=== PATIENT | female | born 1975 | race American Indian/Alaskan Native ===

== ENCOUNTER 2019-01-23 13:50 | Inpatient (IN) | payer OTHER ==
--- NOTE | 2019-01-23 14:07 | Emergency Department Report ---
Blank Doc - Documentation Documentation: This is a 43-year-old female that presents with n/v and abdominal pain diffuse. This initial assessment/diagnostic orders/clinical plan/treatment(s) is/are subject to change based on patient's health status, clinical progression and re- assessment by fellow clinical providers in the ED. Further treatment and workup at subsequent clinical providers discretion. Patient/guardians urged not to elope from the ED as their condition may be serious if not clinically assessed and managed. Initial orders include: 1- Patient sent to [facility] for further evaluation and treatment 2- labs 3- UA
[2019-01-23 14:44] LABS: Bilirubin,Urine NEG (Negative); Blood,Urine NEG (Negative); Color,Urine Yellow (Yellow); Mucus,Urine FEW /HPF; RBC,Urine < 1.0 /HPF (0.0-6.0); Urobilinogen,Urine < 2.0 mg/dL (<2.0)
[2019-01-23 15:15] LABS: Basophils # (Auto) 0.1 K/mm3 (0.0-0.1); Basophils % (Auto) 0.5 % (0.0-1.8); Eosinophils % (Auto) 0.1 % (0.0-4.3); Hematocrit 36.3 % (30.3-42.9); Hemoglobin 11.6 gm/dl (10.1-14.3); Lymphocytes # (Auto) 1.5 K/mm3 (1.2-5.4); Lymphocytes % (Auto) 10.3 % (13.4-35.0); Mean Corpuscular HGB Conc 32 % (30-34); Mean Corpuscular Volume 73 fl (79-97); Monocytes # (Auto) 0.7 K/mm3 (0.0-0.8); Monocytes % (Auto) 4.9 % (0.0-7.3); Platelet Count 330 K/mm3 (140-440); Red Blood Count 4.95 M/mm3 (3.65-5.03)
[2019-01-23 15:33] LABS: Alanine Aminotransferase 15 units/L (7-56); Albumin 3.8 g/dL (3.9-5); BUN/Creatinine Ratio 20; Blood Urea Nitrogen 10 mg/dL (7-17); Calcium 8.5 mg/dL (8.4-10.2); Hemolysis Index 23
[2019-01-23 15:38] LABS: Bilirubin,Direct < 0.2 mg/dL (0-0.2)
--- NOTE | 2019-01-23 19:44 | Emergency Department Report ---
ED Abdominal Pain HPI - General Chief Complaint: Abdominal Pain Stated Complaint: STOMACH PAIN EXTREME Time Seen by Provider: 01/23/19 14:06 Source: patient Mode of arrival: Ambulatory Limitations: No Limitations - History of Present Illness Initial Comments: Pt is a 43 yo female who presents to the ED with c/o generalized upper abd pain that began yesterday. She has associated N/V. The patient states she also has constipation, she says she had a small BM yesterday. She denies any diarrhea or fever. The patient denies any urinary sx. LNMP December 24. She denies any PMHx. she denies any daily medications. no allergies to medications. - Related Data Allergies Allergy/AdvReac Type Severity Reaction Status Date / Time No Known Allergies Allergy Unverified 01/23/19 13:52 ED Review of Systems ROS: Stated complaint: STOMACH PAIN EXTREME Other details as noted in HPI Comment: All other systems reviewed and negative ED Past Medical Hx - Past Medical History Previous Medical History?: No - Surgical History Past Surgical History?: No - Social History Smoking Status: Never Smoker Substance Use Type: None ED Physical Exam - General Limitations: No Limitations General appearance: alert, in no apparent distress - Head Head exam: Present: atraumatic, normocephalic - Eye Eye exam: Present: normal appearance, PERRL - ENT ENT exam: Present: mucous membranes moist - Respiratory Respiratory exam: Present: normal lung sounds bilaterally. Absent: respiratory distress, wheezes, rales, rhonchi, stridor, chest wall tenderness, accessory muscle use, decreased breath sounds, prolonged expiratory - Cardiovascular Cardiovascular Exam: Present: regular rate, normal rhythm, normal heart sounds. Absent: systolic murmur, diastolic murmur, rubs, gallop - GI/Abdominal GI/Abdominal exam: Present: soft, tenderness (generalized upper abd tenderness t o palpation ), hypoactive bowel sounds. Absent: distended, guarding, rebound, rigid - Back Exam Back exam: Absent: CVA tenderness (R), CVA tenderness (L) - Neurological Exam Neurological exam: Present: alert, oriented X3 - Psychiatric Psychiatric exam: Present: normal affect, normal mood - Skin Skin exam: Present: warm, dry, intact ED Course Vital Signs 01/23/19 01/23/19 14:07 23:09 Temperature 98.7 F 98.6 F Pulse Rate 94 H 89 Respiratory 16 17 Rate Blood Pressure 137/84 Blood Pressure 125/71 [Right] O2 Sat by Pulse 100 97 Oximetry - Consultations Consultation #1: 01/23/19 21:[address] Hernandez general surgery about pt and pt results, advised to place NPO, give IV fluids at 125/hr, zosyn and admit to hospitalist. Consultation #2: 01/23/19 21:[address] Dalton, hospitalist who is in a patients room and will call back Consultation #3: 01/23/19 10:[address] Dalton who will admit and resume care of the patient ED Medical Decision Making - Lab Data Result diagrams: 01/24/19 04:25 01/23/19 14:55 Lab Results 01/23/19 01/23/19 01/23/19 Range/Units 14:12 14:55 14:55 WBC 14.3 H (4.5-11.0) K/mm3 RBC 4.95 (3.65-5.03) M/mm3 Hgb 11.6 (10.1-14.3) gm/dl Hct 36.3 (30.3-42.9) % MCV 73 L (79-97) fl MCH 24 L (28-32) pg MCHC 32 (30-34) % RDW 15.0 (13.2-15.2) % Plt Count 330 (140-440) K/mm3 Lymph % (Auto) 10.3 L (13.4-35.0) % [place] % (Auto) 4.9 (0.0-7.3) % Eos % (Auto) 0.1 (0.0-4.3) % Baso % (Auto) 0.5 (0.0-1.8) % Lymph # 1.5 (1.2-5.4) K/mm3 [place] # 0.7 (0.0-0.8) K/mm3 Eos # 0.0 (0.0-0.4) K/mm3 Baso # 0.1 (0.0-0.1) K/mm3 Seg Neutrophils % 84.2 H (40.0-70.0) % Seg Neutrophils # 12.1 H (1.8-7.7) K/mm3 Sodium 135 L (137-145) mmol/L Potassium 3.9 (3.6-5.0) mmol/L Chloride 100.2 (98-107) mmol/L Carbon Dioxide 22 (22-30) mmol/L Anion Gap 17 mmol/L BUN 10 (7-17) mg/dL Creatinine 0.5 L (0.7-1.2) mg/dL Estimated GFR > 60 ml/min BUN/Creatinine Ratio 20 % Glucose 129 H (65-100) mg/dL Calcium 8.5 (8.4-10.2) mg/dL Total Bilirubin 0.40 (0.1-1.2) mg/dL Direct Bilirubin < 0.2 (0-0.2) mg/dL Indirect Bilirubin 0.2 mg/dL AST 16 (5-40) units/L ALT 15 (7-56) units/L Alkaline Phosphatase 68 (35-129) units/L Total Protein 7.4 (6.3-8.2) g/dL Albumin 3.8 L (3.9-5) g/dL Albumin/Globulin Ratio 1.1 % Lipase 21 (13-60) units/L HCG, Qual (Negative) Urine Color Yellow (Yellow) Urine Turbidity Hazy (Clear) Urine pH 6.0 (5.0-7.0) Ur Specific [place] 1.025 (1.003-1.030) Urine Protein 30 mg/dl (Negative) mg/dL Urine Glucose (UA) Neg (Negative) mg/dL Urine Ketones Neg (Negative) mg/dL Urine Blood Neg (Negative) Urine Nitrite Neg (Negative) Urine Bilirubin Neg (Negative) Urine Urobilinogen < 2.0 (<2.0) mg/dL Ur Leukocyte Esterase Tr (Negative) Urine WBC (Auto) 2.0 (0.0-6.0) /HPF Urine RBC (Auto) < 1.0 (0.0-6.0) /HPF U Epithel Cells (Auto) 10.0 (0-13.0) /HPF Urine Mucus Few /HPF 01/23/19 Range/Units 14:55 WBC (4.5-11.0) K/mm3 RBC (3.65-5.03) M/mm3 Hgb (10.1-14.3) gm/dl Hct (30.3-42.9) % MCV (79-97) fl MCH (28-32) pg MCHC (30-34) % RDW (13.2-15.2) % Plt Count (140-440) K/mm3 Lymph % (Auto) (13.4-35.0) % [place] % (Auto) (0.0-7.3) % Eos % (Auto) (0.0-4.3) % Baso % (Auto) (0.0-1.8) % Lymph # (1.2-5.4) K/mm3 [place] # (0.0-0.8) K/mm3 Eos # (0.0-0.4) K/mm3 Baso # (0.0-0.1) K/mm3 Seg Neutrophils % (40.0-70.0) % Seg Neutrophils # (1.8-7.7) K/mm3 Sodium (137-145) mmol/L Potassium (3.6-5.0) mmol/L Chloride (98-107) mmol/L Carbon Dioxide (22-30) mmol/L Anion Gap mmol/L BUN (7-17) mg/dL Creatinine (0.7-1.2) mg/dL Estimated GFR ml/min BUN/Creatinine Ratio % Glucose (65-100) mg/dL Calcium (8.4-10.2) mg/dL Total Bilirubin (0.1-1.2) mg/dL Direct Bilirubin (0-0.2) mg/dL Indirect Bilirubin mg/dL AST (5-40) units/L ALT (7-56) units/L Alkaline Phosphatase (35-129) units/L Total Protein (6.3-8.2) g/dL Albumin (3.9-5) g/dL Albumin/Globulin Ratio % Lipase (13-60) units/L HCG, Qual Negative (Negative) Urine Color (Yellow) Urine Turbidity (Clear) Urine pH (5.0-7.0) Ur Specific [place] (1.003-1.030) Urine Protein (Negative) mg/dL Urine Glucose (UA) (Negative) mg/dL Urine Ketones (Negative) mg/dL Urine Blood (Negative) Urine Nitrite (Negative) Urine Bilirubin (Negative) Urine Urobilinogen (<2.0) mg/dL Ur Leukocyte Esterase (Negative) Urine WBC (Auto) (0.0-6.0) /HPF Urine RBC (Auto) (0.0-6.0) /HPF U Epithel Cells (Auto) (0-13.0) /HPF Urine Mucus /HPF - Radiology Data Radiology results: report reviewed PROCEDURE: CT ABDOMEN PELVIS W CON TECHNIQUE: Computerized axial tomography of the abdomen and pelvis was performed after the IV injection of iodinated nonionic contrast. CT DOSE LENGTH PRODUCT: 3148.7 mGycm HISTORY: upper abd pain, elevated WBC COMPARISONS: None . FINDINGS: Liver, spleen pancreas and adrenal glands are within normal limits. Bilateral kidneys demonstrate normal enhancement without hydronephrosis. Urinary bladder is empty. Aorta is of normal caliber. There is no free fluid or free air. Gallbladder is unremarkable. Small bowel loops are within normal limits. Appendix is thickened with mild degree of periappendiceal fat induration. Appendix measures 12 mm in thickness. A 5.5 cm inhomogeneously enhancing mass lesion is noted in the uterus. A fat- containing uncomplicated umbilical hernia is noted measuring 3.1 cm. Vertebral height is normal. IMPRESSION: Thickened appendix with periappendiceal inflammation consistent with acute appendicitis. There is no evidence of perforation or abscess formation the present time. Uterine mass lesion is consistent with fibroid measuring about 5.5 cm. This document is electronically signed by Vamshi Snyder MD., Jan 23 2019 09:09:46 PM ET Transcribed By: [facility] Dictated By: VAMSHI SNYDER Electronically Authenticated By: VAMSHI SNYDER Signed Date/Time: 01/23/192111 - Medical Decision Making WBC 14,000. CT abd/pelvis with evidence of acute appendicitis. celestine Burgess eneral surgery consulted and will evaluate pt in the morning. Dr. Dalton, hospitalist admitted pt to hospital and accepted and resumed care. - Differential Diagnosis gallstones, cholecystitis, GERD, gastritis, PUD Critical care attestation.: If time is entered above; I have spent that time in minutes in the direct care of this critically ill patient, excluding procedure time. ED Disposition Clinical Impression: Acute appendicitis Qualifiers: Acute appendicitis type: with localized peritonitis Appendicitis gangrene presence: without gangrene Appendicitis perforation presence: without perforation Appendicitis abscess presence: without abscess Qualified Code(s): K35.30 - Acute appendicitis with localized peritonitis, without perforation or gangrene Disposition: - TO HOME OR SELFCARE Is pt being admited?: Yes Does the pt Need Aspirin: No Condition: Fair Time of Disposition: 22:53
--- NOTE | 2019-01-23 21:12 | Cat Scan Report ---
PROCEDURE: CT ABDOMEN PELVIS W CON TECHNIQUE: Computerized axial tomography of the abdomen and pelvis was performed after the IV inject ion of iodinated nonionic contrast. CT DOSE LENGTH PRODUCT: 3148.7 mGycm HISTORY: upper abd pain, elevated WBC COMPARISONS: None . FINDINGS: Liver, spleen pancreas and adrenal glands are within normal limits. Bilateral kidneys demonstrate nor mal enhancement without hydronephrosis. Urinary bladder is empty. Aorta is of normal caliber. There i s no free fluid or free air. Gallbladder is unremarkable. Small bowel loops are within normal limits. Appendix is thickened with mild degree of periappendiceal fat induration. Appendix measures 12 mm in thickness. A 5.5 cm inhomogeneously enhancing mass lesion is noted in the uterus. A fat-containing u ncomplicated umbilical hernia is noted measuring 3.1 cm. Vertebral height is normal. IMPRESSION: Thickened appendix with periappendiceal inflammation consistent with acute appendicitis. There is no evidence of perforation or abscess formation the present time. Uterine mass lesion is consistent with fibroid measuring about 5.5 cm. This document is electronically signed by Chito Snyder MD., Jan 23 2019 09:09:46 PM ET
[2019-01-23] MEDS ORDERED: TORADOL IV ONE (21:43)
[2019-01-23] MEDS ORDERED: NACL 0.9% 1000 ML 1,000 ML IV ONE (21:43)
[2019-01-23] MEDS ORDERED: ZOFRAN IV ONE (21:43)
[2019-01-23] MEDS ORDERED: NACL 0.9% IV SCH (22:00)
[2019-01-23] MEDS ORDERED: NACL 0.9% 1000 ML 1,000 ML IV SCH (22:00)
[2019-01-23] MEDS ORDERED: ZOSYN/NS 3.375GM/50ML 3.375 GM/50 ML BAG IV ONE (22:00)
[2019-01-23] MEDS ORDERED: ZOFRAN IV PRN (22:38)
[2019-01-23] MEDS ORDERED: SODIUM CHLORIDE FLUSH SYRINGE 10 ML IV PRN (22:38)
[2019-01-23] MEDS ORDERED: TYLENOL PO PRN (22:38)
[2019-01-23] MEDS ORDERED: DILAUDID IV PRN (22:38)
[2019-01-23] MEDS ORDERED: NS/KCL 20MEQ 20 MEQ/1,000 ML BAG IV SCH (23:00)
--- NOTE | 2019-01-23 23:05 | History and Physical Report ---
History of Present Illness Date of examination: 01/23/19 Chief complaint: Upper abdominal pain History of present illness: Patient is a 43 year old black female with no known past medical history who presented to the ED on account of 1 day history of upper abdominal pain. She described it as sharp in character, constant in duration, nonradiating and rated 8 over 10. Pain is aggravated by laying on her side and slightly relieved by laying flat. She has associated nausea with vomiting and chills without fever. She denies constipation, diarrhea, dysuria or frequency. No chest pain, sh ortness of breath, palpitation, leg swelling, sore throat, runny nose or congestion, orthopnea or PND. No headaches, lightheadedness, syncope or loss of consciousness. Past History Past Medical History: No medical history Past Surgical History: No surgical history Social history: no significant social history (she denies tobacco, alcohol or illicit drug use) Family history: diabetes (parents. Others reviewed and noncontributory to current presentation) Medications and Allergies Allergies Allergy/AdvReac Type Severity Reaction Status Date / Time No Known Allergies Allergy Unverified 01/23/19 13:52 Active Meds: Active Medications Acetaminophen (Tylenol) 650 mg PO Q4H PRN PRN Reason: Pain MILD(1-3)/Fever >100.5/CHRIS Hydromorphone HCl (Dilaudid) 0.5 mg IV Q3H PRN PRN Reason: Pain , Severe (7-10) Sodium Chloride (Nacl 0.9% 1000 Ml) 1,000 mls @ 125 mls/hr IV DIRECT SHWETA Potassium Chloride/Sodium Chloride (Ns/Kcl 20meq) 20 meq in 1,000 mls @ 100 mls/hr IV DIRECT SHWETA Piperacillin Sod/Tazobactam Sod (Zosyn/Ns 3.375gm/50ml) 3.375 gm in 50 mls @ 100 mls/hr IV Q8HR SHWETA; Protocol Ondansetron HCl (Zofran) 4 mg IV Q8H PRN PRN Reason: Nausea And Vomiting Pantoprazole Sodium (Protonix) 40 mg IV QDAY SHWETA Sodium Chloride (Sodium Chloride Flush Syringe 10 Ml) 10 ml IV BID SHWETA Sodium Chloride (Sodium Chloride Flush Syringe 10 Ml) 10 ml IV PRN PRN PRN Reason: LINE FLUSH Review of Systems All systems: negative (except as documented in the HPI, 14 point system reviewed were negative) Exam - Constitutional Vitals: Temp Pulse Resp BP Pulse Ox 98.7 F 94 H 16 137/84 100 01/23/19 14:07 01/23/19 14:07 01/23/19 14:07 01/23/19 14:07 01/23/19 14:07 General appearance: Present: no acute distress - EENT Eyes: Present: PERRL, EOM intact ENT: hearing intact, clear oral mucosa - Neck Neck: Present: supple - Respiratory Respiratory effort: normal Respiratory: bilateral: CTA - Cardiovascular Rhythm: regular Heart Sounds: Present: S1 & S2 - Extremities Extremities: pulses symmetrical Extremity abnormal: edema (trace edema in bilateral lower extremities) - Abdominal General gastrointestinal: Present: soft, tender (upper abdomen), normal bowel sounds Female genitourinary: Present: deferred - Integumentary Integumentary: Present: clear, warm, dry - Musculoskeletal Musculoskeletal: strength equal bilaterally - Psychiatric Psychiatric: appropriate mood/affect, intact judgment & insight - Neurologic Neurologic: CNII-XII intact Results - Labs CBC & Chem 7: 01/23/19 14:55 01/23/19 14:55 Labs: Laboratory Last Values WBC 14.3 K/mm3 (4.5-11.0) H 01/23/19 14:55 RBC 4.95 M/mm3 (3.65-5.03) 01/23/19 14:55 Hgb 11.6 gm/dl (10.1-14.3) 01/23/19 14:55 Hct 36.3 % (30.3-42.9) 01/23/19 14:55 MCV 73 fl (79-97) L 01/23/19 14:55 MCH 24 pg (28-32) L 01/23/19 14:55 MCHC 32 % (30-34) 01/23/19 14:55 RDW 15.0 % (13.2-15.2) 01/23/19 14:55 Plt Count 330 K/mm3 (140-440) 01/23/19 14:55 Lymph % (Auto) 10.3 % (13.4-35.0) L 01/23/19 14:55 [place] % (Auto) 4.9 % (0.0-7.3) 01/23/19 14:55 Eos % (Auto) 0.1 % (0.0-4.3) 01/23/19 14:55 Baso % (Auto) 0.5 % (0.0-1.8) 01/23/19 14:55 Lymph # 1.5 K/mm3 (1.2-5.4) 01/23/19 14:55 [place] # 0.7 K/mm3 (0.0-0.8) 01/23/19 14:55 Eos # 0.0 K/mm3 (0.0-0.4) 01/23/19 14:55 Baso # 0.1 K/mm3 (0.0-0.1) 01/23/19 14:55 Seg Neutrophils % 84.2 % (40.0-70.0) H 01/23/19 14:55 Seg Neutrophils # 12.1 K/mm3 (1.8-7.7) H 01/23/19 14:55 Sodium 135 mmol/L (137-145) L 01/23/19 14:55 Potassium 3.9 mmol/L (3.6-5.0) 01/23/19 14:55 Chloride 100.2 mmol/L (98-107) 01/23/19 14:55 Carbon Dioxide 22 mmol/L (22-30) 01/23/19 14:55 17 mmol/L 01/23/19 14:55 BUN 10 mg/dL (7-17) 01/23/19 14:55 0.5 mg/dL (0.7-1.2) L 01/23/19 14:55 Estimated GFR > 60 ml/min 01/23/19 14:55 20 % 01/23/19 14:55 Glucose 129 mg/dL (65-100) H 01/23/19 14:55 Calcium 8.5 mg/dL (8.4-10.2) 01/23/19 14:55 0.40 mg/dL (0.1-1.2) 01/23/19 14:55 < 0.2 mg/dL (0-0.2) 01/23/19 14:55 0.2 mg/dL 01/23/19 14:55 AST 16 units/L (5-40) 01/23/19 14:55 ALT 15 units/L (7-56) 01/23/19 14:55 68 units/L (35-129) 01/23/19 14:55 7.4 g/dL (6.3-8.2) 01/23/19 14:55 3.8 g/dL (3.9-5) L 01/23/19 14:55 1.1 % 01/23/19 14:55 21 units/L (13-60) 01/23/19 14:55 HCG, Qual Negative (Negative) 01/23/19 14:55 Yellow (Yellow) 01/23/19 14:12 Hazy (Clear) 01/23/19 14:12 6.0 (5.0-7.0) 01/23/19 14:12 Ur Specific [place] 1.025 (1.003-1.030) 01/23/19 14:12 30 mg/dl mg/dL (Negative) 01/23/19 14:12 Neg mg/dL (Negative) 01/23/19 14:12 Neg mg/dL (Negative) 01/23/19 14:12 Neg (Negative) 01/23/19 14:12 Neg (Negative) 01/23/19 14:12 Neg (Negative) 01/23/19 14:12 < 2.0 mg/dL (<2.0) 01/23/19 14:12 Ur Leukocyte Esterase Tr (Negative) 01/23/19 14:12 2.0 /HPF (0.0-6.0) 01/23/19 14:12 < 1.0 /HPF (0.0-6.0) 01/23/19 14:12 U Epithel Cells (Auto) 10.0 /HPF (0-13.0) 01/23/19 14:12 Few /HPF 01/23/19 14:12 Assessment and Plan Assessment and plan: Acute appendicitis -On IV antibiotic with Zosyn -Surgery consulted SIRS likely due to the appendicitis -On IV antibiotic Hyperglycemia with family history of diabetes -Hemoglobin A1c level pending Morbid obesity with BMI of 41.3 -Lifestyle modification recommended DVT prophylaxis with SCD and GI prophylaxis with Protonix Disposition: For discharge planning post surgery Time spent: 35 minutes
[2019-01-23] MEDS ORDERED: PROTONIX PO ONE (23:16)
[2019-01-23] MEDS ORDERED: PROTONIX IV ONE (23:17)
[2019-01-23] MEDS: PROTONIX IV SCH (23:20)
[2019-01-24 05:19] LABS: Basophils % (Auto) 0.4 % (0.0-1.8); Eosinophils # (Auto) 0.1 K/mm3 (0.0-0.4); Eosinophils % (Auto) 0.9 % (0.0-4.3); Hematocrit 31.2 % (30.3-42.9); Hemoglobin 10.1 gm/dl (10.1-14.3); Lymphocytes # (Auto) 3.1 K/mm3 (1.2-5.4); Lymphocytes % (Auto) 23.5 % (13.4-35.0); Mean Corpuscular HGB Conc 33 % (30-34); Mean Corpuscular Volume 72 fl (79-97); Monocytes % (Auto) 7.9 % (0.0-7.3); Platelet Count 297 K/mm3 (140-440); Red Blood Count 4.35 M/mm3 (3.65-5.03); Red Cell Distribution Width 15.1 % (13.2-15.2)
[2019-01-24 05:42] LABS: BUN/Creatinine Ratio 17; Blood Urea Nitrogen 10 mg/dL (7-17); Calcium 7.9 mg/dL (8.4-10.2); Hemolysis Index 0
[2019-01-24] MEDS ORDERED: ZOSYN/NS 3.375GM/50ML 3.375 GM/50 ML BAG IV SCH (06:00)
--- NOTE | 2019-01-24 07:25 | Progress Note ---
Assessment and Plan Assessment and plan: Patient is a 43 year old woman without known past medical history who presented to the ED on account of 1 day history of upper abdominal pain. * VSS, wbc 13.3, k 3.4, UA negative, bmi 41.3 * CT abd/pelvis with contrast IMPRESSION: Thickened appendix with periappendiceal inflammation consistent with acute appendicitis. There is no evidence of perforation or abscess formation the present time. Uterine mass lesion is consistent with fibroid measuring about 5.5 cm. Acute appendicitis -On IV antibiotic with Zosyn -Surgery consulted SIRS, with organ dysfunction, likely due to the appendicitis -On IV antibiotic Hyperglycemia with family history of diabetes -Hemoglobin A1c level pending Morbid obesity with BMI of 41.3 -Lifestyle modification recommended Hypokalemia: replace via IV because NPO for surgery DVT prophylaxis with SCD and GI prophylaxis with Protonix Disposition: inpatient care, For discharge planning post surgery History Interval history: Patient was seen and examined. Follow-up on current diagnosis of Acute Appendicitis. No overnight events reported to me. Patient denies any chest pain, shortness breath, nausea/vomiting or severe headaches. Imaging, nursing note, chart, labs and old chart reviewed. Discussed with patient. Hospitalist Physical - Physical exam Narrative exam: Gen: WDWN, NAD, Awake, Alert, Orientated HEENT: NCAT, EOMI, PERRL, OP Clear Neck: supple, no adenopathy, no thyromegaly, no JVD CVS/Heart: RRR, normal S1S2, pulses present bilaterally Chest/Lungs: CTA B, Symmetrical chest expansion, good air entry bilaterally GI/Abdomen: soft, tender, good bowel sounds, no guarding or rebound /Bladder: no suprapubic tenderness, no CVA or paraspinal tenderness Extermity/Skin: no c/c/e, no obvious rash MSK: FROM x 4 Neuro: CN 2-12 grossly intact, no new focal deficits Psych: calm - Constitutional Vitals: Temp Pulse Resp BP Pulse Ox 98.7 F 73 20 100/57 99 01/23/19 23:42 01/23/19 23:42 01/23/19 23:42 01/23/19 23:42 01/23/19 23:42 General appearance: Present: no acute distress Results - Labs CBC & Chem 7: 01/24/19 04:25 01/24/19 04:25 Labs: Laboratory Last Values WBC 13.3 K/mm3 (4.5-11.0) H 01/24/19 04:25 RBC 4.35 M/mm3 (3.65-5.03) 01/24/19 04:25 Hgb 10.1 gm/dl (10.1-14.3) 01/24/19 04:25 Hct 31.2 % (30.3-42.9) 01/24/19 04:25 MCV 72 fl (79-97) L 01/24/19 04:25 MCH 23 pg (28-32) L 01/24/19 04:25 MCHC 33 % (30-34) 01/24/19 04:25 RDW 15.1 % (13.2-15.2) 01/24/19 04:25 Plt Count 297 K/mm3 (140-440) 01/24/19 04:25 Lymph % (Auto) 23.5 % (13.4-35.0) 01/24/19 04:25 [place] % (Auto) 7.9 % (0.0-7.3) H 01/24/19 04:25 Eos % (Auto) 0.9 % (0.0-4.3) 01/24/19 04:25 Baso % (Auto) 0.4 % (0.0-1.8) 01/24/19 04:25 Lymph # 3.1 K/mm3 (1.2-5.4) 01/24/19 04:25 [place] # 1.0 K/mm3 (0.0-0.8) H 01/24/19 04:25 Eos # 0.1 K/mm3 (0.0-0.4) 01/24/19 04:25 Baso # 0.0 K/mm3 (0.0-0.1) 01/24/19 04:25 Seg Neutrophils % 67.3 % (40.0-70.0) 01/24/19 04:25 Seg Neutrophils # 8.9 K/mm3 (1.8-7.7) H 01/24/19 04:25 Sodium 138 mmol/L (137-145) 01/24/19 04:25 Potassium 3.4 mmol/L (3.6-5.0) L 01/24/19 04:25 Chloride 104.3 mmol/L (98-107) 01/24/19 04:25 Carbon Dioxide 24 mmol/L (22-30) 01/24/19 04:25 13 mmol/L 01/24/19 04:25 BUN 10 mg/dL (7-17) 01/24/19 04:25 0.6 mg/dL (0.7-1.2) L 01/24/19 04:25 Estimated GFR > 60 ml/min 01/24/19 04:25 17 % 01/24/19 04:25 Glucose 92 mg/dL (65-100) 01/24/19 04:25 5.8 % (4-6) 01/24/19 04:25 Calcium 7.9 mg/dL (8.4-10.2) L 01/24/19 04:25 Magnesium 1.70 mg/dL (1.7-2.3) 01/24/19 04:25 0.40 mg/dL (0.1-1.2) 01/23/19 14:55 < 0.2 mg/dL (0-0.2) 01/23/19 14:55 0.2 mg/dL 01/23/19 14:55 AST 16 units/L (5-40) 01/23/19 14:55 ALT 15 units/L (7-56) 01/23/19 14:55 68 units/L (35-129) 01/23/19 14:55 7.4 g/dL (6.3-8.2) 01/23/19 14:55 3.8 g/dL (3.9-5) L 01/23/19 14:55 1.1 % 01/23/19 14:55 21 units/L (13-60) 01/23/19 14:55 HCG, Qual Negative (Negative) 01/23/19 14:55 Yellow (Yellow) 01/23/19 14:12 Hazy (Clear) 01/23/19 14:12 6.0 (5.0-7.0) 01/23/19 14:12 Ur Specific [place] 1.025 (1.003-1.030) 01/23/19 14:12 30 mg/dl mg/dL (Negative) 01/23/19 14:12 Neg mg/dL (Negative) 01/23/19 14:12 Neg mg/dL (Negative) 01/23/19 14:12 Neg (Negative) 01/23/19 14:12 Neg (Negative) 01/23/19 14:12 Neg (Negative) 01/23/19 14:12 < 2.0 mg/dL (<2.0) 01/23/19 14:12 Ur Leukocyte Esterase Tr (Negative) 01/23/19 14:12 2.0 /HPF (0.0-6.0) 01/23/19 14:12 < 1.0 /HPF (0.0-6.0) 01/23/19 14:12 U Epithel Cells (Auto) 10.0 /HPF (0-13.0) 01/23/19 14:12 Few /HPF 01/23/19 14:12 Active Medications - Current Medications Current Medications: Generic Name Dose Route Start Last Admin Trade Name Freq PRN Reason Stop Dose Admin Acetaminophen 650 mg 01/23/19 22:38 Tylenol PO Q4H PRN Pain MILD(1-3)/Fever >100.5/CHRIS Hydromorphone HCl 0.5 mg 01/23/19 22:38 Dilaudid IV Q3H PRN Pain , Severe (7-10) Sodium Chloride 1,000 mls @ 125 mls/hr 01/23/19 22:00 Nacl 0.9% 1000 Ml IV DIRECT SHWETA Potassium Chloride/Sodium Chloride 20 meq in 1,000 mls @ 100 mls/hr 01/23/19 23:00 Ns/Kcl 20meq IV DIRECT SHWETA Piperacillin Sod/Tazobactam Sod 3.375 gm in 50 mls @ 100 mls/hr 01/24/19 06:00 Zosyn/Ns 3.375gm/50ml IV Q8HR SHWETA Protocol Potassium Chloride 10 meq in 100 mls @ 100 mls/hr 01/24/19 08:00 Kcl 10meq/100ml IV 01/24/19 09:59 Q1H SHWETA Ondansetron HCl 4 mg 01/23/19 22:38 Zofran IV Q8H PRN Nausea And Vomiting Pantoprazole Sodium 40 mg 01/23/19 22:41 01/23/19 23:20 Protonix IV 40 mg QDAY SHWETA Administration Sodium Chloride 10 ml 01/24/19 10:00 Sodium Chloride Flush Syringe 10 Ml IV BID SHWETA Sodium Chloride 10 ml 01/23/19 22:38 Sodium Chloride Flush Syringe 10 Ml IV PRN PRN LINE FLUSH
[2019-01-24] MEDS: KCL 10MEQ/100ML 10 MEQ/100 ML BAG IV SCH ×2 (09:40→10:20)
--- NOTE | 2019-01-24 09:55 | Anesthesia Consultation ---
Anesthesia Consult and Med Hx Date of service: 01/24/19 - Airway Anesthetic Teeth Evaluation: Good ROM Head & Neck: Adequate Mental/Hyoid Distance: Adequate Mallampati Class: Class III Intubation Access Assessment: Possibly Difficult - Pulmonary Exam CTA: Yes - Cardiac Exam Cardiac Exam: RRR - Pre-Operative Health Status ASA Pre-Surgery Classification: ASA2 Proposed Anesthetic Plan: General - Pulmonary Hx Smoking: No Hx Respiratory Symptoms: No - Cardiovascular System Hx Hypertension: No Hx Heart Attack/AMI: No Hx Cardia Arrhythmia: No - Central Nervous System CVA: No - Gastrointestinal Hx Gastroesophageal Reflux Disease: No - Endocrine Hx Renal Disease: No Hx Liver Disease: No Hx Insulin Dependent Diabetes: No Hx Non-Insulin Dependent Diabetes: No Hx Thyroid Disease: No - Hematic Hx Anemia: Yes - Other Systems Hx Obesity: Yes (BMI 41) - Additional Comments Anesthesia Medical History Comments: No prior GA. No FHx anesthetic complications. Last episode vomiting 5/20 AM. No nausea today.
[2019-01-24] MEDS ORDERED: DILAUDID IV PRN (09:56)
--- NOTE | 2019-01-24 09:56 | Anesthesia Day of Surgery ---
Anesthesia Day of Surgery - Day of Surgery Patient Examined: Yes Patient H&P Reviewed: Yes Patient is NPO: Yes
[2019-01-24] MEDS ORDERED: VERSED IV NR (10:00)
[2019-01-24] MEDS ORDERED: TRANSDERM-SCOP TD NR (10:00)
[2019-01-24] MEDS ORDERED: LACTATED RINGERS 1,000 ML IV SCH (10:00)
[2019-01-24] MEDS: PROTONIX IV SCH (10:20)
[2019-01-24] MEDS: SODIUM CHLORIDE FLUSH SYRINGE 10 ML IV SCH ×2 (10:21→21:34)
--- NOTE | 2019-01-24 10:35 | Consultation ---
History of Present Illness Consult date: 01/24/19 Reason for consult: abdominal pain Chief complaint: abdominal pain - History of present illness History of present illness: 43 yo F with no PMhx presents to ER with c/o acute onset sharp epigastric/perium bilical pain radiating across the abdomen. She has never had pain like this before. No exacerbating or alleviating factors. No f/c. +n/v. No cp, sob. Past History Past Medical History: No medical history Past Surgical History: No surgical history Social history: no significant social history (she denies tobacco, alcohol or illicit drug use) Family history: diabetes (parents. Others reviewed and noncontributory to current presentation) Medications and Allergies Allergies Allergy/AdvReac Type Severity Reaction Status Date / Time No Known Allergies Allergy Unverified 01/23/19 13:52 Active Meds: Active Medications Acetaminophen (Tylenol) 650 mg PO Q4H PRN PRN Reason: Pain MILD(1-3)/Fever >100.5/CHRIS Hydromorphone HCl (Dilaudid) 0.5 mg IV Q3H PRN PRN Reason: Pain , Severe (7-10) Hydromorphone HCl (Dilaudid) 0.5 mg IV Q10MIN PRN PRN Reason: Pain , Severe (7-10) Sodium Chloride (Nacl 0.9% 1000 Ml) 1,000 mls @ 125 mls/hr IV DIRECT SHWETA Potassium Chloride/Sodium Chloride (Ns/Kcl 20meq) 20 meq in 1,000 mls @ 100 mls/hr IV DIRECT SHWETA Piperacillin Sod/Tazobactam Sod (Zosyn/Ns 3.375gm/50ml) 3.375 gm in 50 mls @ 100 mls/hr IV Q8HR SHWETA; Protocol Lactated Ringer's (Lactated Ringers) 1,000 mls @ 100 mls/hr IV DIRECT SHWETA Midazolam HCl (Versed) 2 mg IV PREOP NR Stop: 01/24/19 23:59 Ondansetron HCl (Zofran) 4 mg IV Q8H PRN PRN Reason: Nausea And Vomiting Pantoprazole Sodium (Protonix) 40 mg IV QDAY SHWETA Last Admin: 01/24/19 10:20 Dose: Not Given Documented by: Scopolamine (Transderm-Scop) 1 each TD PREOP NR Stop: 01/24/19 18:00 Sodium Chloride (Sodium Chloride Flush Syringe 10 Ml) 10 ml IV BID SHWETA Last Admin: 01/24/19 10:21 Dose: Not Given Documented by: Sodium Chloride (Sodium Chloride Flush Syringe 10 Ml) 10 ml IV PRN PRN PRN Reason: LINE FLUSH Review of Systems All systems: negative (10 pt ROS performed and negative except for that listed in HPI) Exam Vital Signs Temp Pulse Resp BP Pulse Ox 98.7 F 94 H 16 137/84 100 01/23/19 14:07 01/23/19 14:07 01/23/19 14:07 01/23/19 14:07 01/23/19 14:07 Narrative exam: Gen: AAOx3. NAD ENT; no scleral icterus or conjunctival pallor CV: s1, S2+ Resp: even and unlabored Abd: soft, ND, + R mid abdominal pain. No r/r/g Ext; no c/c/e Results - Labs 01/24/19 04:25 01/24/19 04:25 Abnormal lab results 01/23/19 01/23/19 01/24/19 Range/Units 14:55 14:55 04:25 WBC 14.3 H 13.3 H (4.5-11.0) K/mm3 MCV 73 L 72 L (79-97) fl MCH 24 L 23 L (28-32) pg Lymph % (Auto) 10.3 L (13.4-35.0) % [place] % (Auto) 7.9 H (0.0-7.3) % [place] # 1.0 H (0.0-0.8) K/mm3 Seg Neutrophils % 84.2 H (40.0-70.0) % Seg Neutrophils # 12.1 H 8.9 H (1.8-7.7) K/mm3 Sodium 135 L (137-145) mmol/L Potassium (3.6-5.0) mmol/L Creatinine 0.5 L (0.7-1.2) mg/dL Glucose 129 H (65-100) mg/dL Calcium (8.4-10.2) mg/dL Albumin 3.8 L (3.9-5) g/dL 01/24/19 Range/Units 04:25 WBC (4.5-11.0) K/mm3 MCV (79-97) fl MCH (28-32) pg Lymph % (Auto) (13.4-35.0) % [place] % (Auto) (0.0-7.3) % [place] # (0.0-0.8) K/mm3 Seg Neutrophils % (40.0-70.0) % Seg Neutrophils # (1.8-7.7) K/mm3 Sodium (137-145) mmol/L Potassium 3.4 L (3.6-5.0) mmol/L Creatinine 0.6 L (0.7-1.2) mg/dL Glucose (65-100) mg/dL Calcium 7.9 L (8.4-10.2) mg/dL Albumin (3.9-5) g/dL Diabetes panel 01/23/19 01/24/19 01/24/19 Range/Units 14:55 04:25 04:25 Sodium 135 L 138 (137-145) mmol/L Potassium 3.9 3.4 L (3.6-5.0) mmol/L Chloride 100.2 104.3 (98-107) mmol/L Carbon Dioxide 22 24 (22-30) mmol/L BUN 10 10 (7-17) mg/dL Creatinine 0.5 L 0.6 L (0.7-1.2) mg/dL Glucose 129 H 92 (65-100) mg/dL Hemoglobin A1c 5.8 (4-6) % Calcium 8.5 7.9 L (8.4-10.2) mg/dL AST 16 (5-40) units/L ALT 15 (7-56) units/L Alkaline Phosphatase 68 (35-129) units/L Total Protein 7.4 (6.3-8.2) g/dL Albumin 3.8 L (3.9-5) g/dL Calcium panel 01/23/19 01/24/19 Range/Units 14:55 04:25 Calcium 8.5 7.9 L (8.4-10.2) mg/dL Albumin 3.8 L (3.9-5) g/dL Pituitary panel 01/23/19 01/24/19 Range/Units 14:55 04:25 Sodium 135 L 138 (137-145) mmol/L Potassium 3.9 3.4 L (3.6-5.0) mmol/L Chloride 100.2 104.3 (98-107) mmol/L Carbon Dioxide 22 24 (22-30) mmol/L BUN 10 10 (7-17) mg/dL Creatinine 0.5 L 0.6 L (0.7-1.2) mg/dL Glucose 129 H 92 (65-100) mg/dL Calcium 8.5 7.9 L (8.4-10.2) mg/dL Adrenal panel 01/23/19 01/24/19 Range/Units 14:55 04:25 Sodium 135 L 138 (137-145) mmol/L Potassium 3.9 3.4 L (3.6-5.0) mmol/L Chloride 100.2 104.3 (98-107) mmol/L Carbon Dioxide 22 24 (22-30) mmol/L BUN 10 10 (7-17) mg/dL Creatinine 0.5 L 0.6 L (0.7-1.2) mg/dL Glucose 129 H 92 (65-100) mg/dL Calcium 8.5 7.9 L (8.4-10.2) mg/dL Total Bilirubin 0.40 (0.1-1.2) mg/dL AST 16 (5-40) units/L ALT 15 (7-56) units/L Alkaline Phosphatase 68 (35-129) units/L Total Protein 7.4 (6.3-8.2) g/dL Albumin 3.8 L (3.9-5) g/dL - Imaging CT scan - abdomen: report reviewed, image reviewed CT scan - chest: image reviewed CT scan - pelvis: report reviewed Assessment and Plan 43 yo F with acute appendicitis Plan; 1. NPO 2. IVF 3. IV abx 4. prn pain and nausea control 5. DVT ppx 6. recommend appendectomy. All risks, benefits, and alternatives to laparoscopic, possible open appendectomy discussed with the patient and questions answered. Consent obtained. Thank you, please call with questions.
[2019-01-24] MEDS ORDERED: ZOFRAN ONE (11:47)
[2019-01-24] MEDS ORDERED: DIPRIVAN 10 MG/ML IV ONE (11:47)
[2019-01-24] MEDS ORDERED: XYLOCAINE MPF 2% ONE (11:47)
[2019-01-24] MEDS ORDERED: SUBLIMAZE ONE (11:47)
[2019-01-24] MEDS ORDERED: DECADRON ONE (11:47)
[2019-01-24] MEDS ORDERED: ZEMURON IV ONE (11:47)
[2019-01-24] MEDS ORDERED: TORADOL ONE (11:47)
--- NOTE | 2019-01-24 11:58 | Discharge Summary ---
Providers - Providers Date of Admission: 01/23/19 22:38 Date of discharge: 01/24/19 Attending physician: LEANNE MERCADO 01/23/19 22:41 Consult to Physician [CONS] Urgent Comment: ACID OPERATOR/PA spoke with Dr. Carlos @ [phone] Consulting Provider: ANDREW CARLOS Physician Instructions: Reason For Exam: Acute appendicitis Primary care physician: [facility], Hospitalization Condition: Stable Hospital course: Patient is a 43 year old woman without known past medical history who presented to the ED on account of 1 day history of upper abdominal pain. * VSS, wbc 13.3, k 3.4, UA negative, bmi 41.3 * CT abd/pelvis with contrast IMPRESSION: Thickened appendix with periappendiceal inflammation consistent with acute appendicitis. There is no evidence of perforation or abscess formation the present time. Uterine mass lesion is consistent with fibroid measuring about 5.5 cm. Acute appendicitis SIRS, with organ dysfunction, poa likely due to the appendicitis Hyperglycemia with family history of diabetes Morbid obesity with BMI of 41.3 Hypokalemia: DVT prophylaxis Disposition: DC- TO HOME OR SELFCARE Time spent for discharge: 35 minutes Core Measure Documentation - Palliative Care Palliative Care/ Comfort Measures: Not Applicable - Core Measures Any of the following diagnoses?: none - VTE Discharge Requirements Deep Vein Thrombosis/Pulmonary Embolism Present on Admission: No Has pt received <5 days of overlap therapy or INR<2.0: No Anticoagulant overlap therapy prescribed at discharge: No Contraindication No Overlap Therapy order at DC: Not Indicated Exam - Physical Exam Narrative exam: Gen: WDWN, NAD, Awake, Alert, Orientated HEENT: NCAT, EOMI, PERRL, OP Clear Neck: supple, no adenopathy, no thyromegaly, no JVD CVS/Heart: RRR, normal S1S2, pulses present bilaterally Chest/Lungs: CTA B, Symmetrical chest expansion, good air entry bilaterally GI/Abdomen: soft, tender, good bowel sounds, no guarding or rebound /Bladder: no suprapubic tenderness, no CVA or paraspinal tenderness Extermity/Skin: no c/c/e, no obvious rash MSK: FROM x 4 Neuro: CN 2-12 grossly intact, no new focal deficits Psych: calm - Constitutional Vitals: Temp Pulse Resp BP Pulse Ox 98.8 F 82 18 106/55 98 01/24/19 08:00 01/24/19 08:00 01/24/19 08:00 01/24/19 08:00 01/24/19 07:10 Plan Activity: other (no strenous activity unless cleared by Surgeon) Diet: advance as tolerated Follow up with: JONAS VASQUESDAYTON MD MEGHANA [Primary Care Provider] - 2-3 Days ANDREW CARLOS DO [Staff Physician] - 01/27/19
[2019-01-24] MEDS ORDERED: MARCAINE 0.5% INFILTRATI ONE ×2 (12:16)
[2019-01-24] MEDS ORDERED: XYLOCAINE 1% 20 mL ONE (12:16)
[2019-01-24] MEDS ORDERED: XYLOCAINE 1% 20 mL INFILTRATI ONE (12:16)
[2019-01-24] MEDS ORDERED: NACL 0.9% IR ONE (12:16)
--- NOTE | 2019-01-24 12:44 | Post Operative Note ---
Date of procedure: 01/24/19 Pre-op diagnosis: acute appendicitis Post-op diagnosis: same Findings: thickened and inflamed distal appendix Procedure: laparoscopic appendectomy Anesthesia: JOVANYA, local Surgeon: ANDREW CARLOS Superintendent Nonselling: SHAY CHURCHILL Estimated blood loss: minimal Pathology: list (appendix) Specimen disposition: to lab Condition: stable Disposition: PACU
[2019-01-24] MEDS ORDERED: PERCOCET 5/325 PO PRN (12:46)
--- NOTE | 2019-01-24 13:44 | Post Anesthesia Evaluation ---
- Post Anesthesia Evaluation Patient Participated: Yes Airway Patent: Yes Stable Respiratory Function: Yes Nausea/Vomiting: No Temp > 96.8F: Yes Pain Manageable: Yes Adequeate Hydration: Yes Anesthesia Complications: No
--- NOTE | 2019-01-24 13:48 | Operative Report ---
PREOPERATIVE DIAGNOSIS: Acute appendicitis. POSTOPERATIVE DIAGNOSIS: Acute appendicitis. FINDINGS: Thickened and inflamed distal appendix. PROCEDURE: Laparoscopic appendectomy. ANESTHESIA: General endotracheal anesthesia, local. SURGEON: Taniya Hernandez DO CLOSED CIRCUIT SCREEN WATCHER: Jennifer Liz MD ESTIMATED BLOOD LOSS: Minimal. PATHOLOGY: Appendix. SPECIMEN DISPOSITION: To lab. CONDITION DISPOSITION: The patient is stable to PACU. HISTORY OF PRESENT ILLNESS AND INDICATION: The patient is a 43-year-old female who presented to the Emergency Room with complaints of acute onset abdominal pain. The patient was found to have a leukocytosis and a CT scan of the abdomen and pelvis showed appendicitis. On physical exam, the patient did have some right-sided tenderness near the umbilicus. Appendectomy was recommended. All risks, benefits and alternatives to surgery were discussed with the patient and questions answered. Consent was obtained. PROCEDURE IN DETAIL: The patient was identified in the preoperative area, taken back to the operating room and placed on the operating table in supine position. After anesthesia was induced, a Dumont catheter was sterilely placed by the circulating nurse. The left arm was tucked and all bony prominences padded appropriately. The abdomen was prepped and draped in the usual sterile fashion. A timeout was performed. The skin incisions were infiltrated with local anesthetic and a juliana incision was made in the left upper quadrant through which a Veress needle was inserted. The positioning was confirmed using the saline drop test. However, the pressures were too high and therefore, the Veress needle was withdrawn. Veress needle was then inserted through the umbilicus and position confirmed using saline drop test. The abdomen was insufflated to 15 mmHg. A 5 mm incision was made above the umbilicus through which an Optiview 5 mm trocar was placed. The Veress needle was withdrawn. The abdomen was inspected. There was no underlying injury to any intra-abdominal structures. The patient was placed in Trendelenburg and tilted to the left. An additional 12 mm left lower quadrant trocar was placed under direct visualization, a 5 mm suprapubic trocar under direct visualization. The cecum was retracted medially and the appendix was visualized. The distal tip of the appendix was very thickened and inflamed. The appendix was grasped and retracted cephalad in order to identify the course of the mesentery. The base of the appendix was easily identified and was not involved in the inflammation. The mesentery was ligated using Harmonic scalpel and this ligation was taken down to the base of the appendix. Once the base of the appendix was reached, the appendix was transected using [place] Flex 45 mm white load stapler. The appendix was placed into an EndoCatch bag and removed via the 12 mm port. The right lower quadrant was then inspected and a pinpoint area of bleeding from the staple line was controlled using clips. The mesoappendix was inspected and there was no bleeding from this area. The patient was placed in neutral position and the 12 mm port fascia was closed with 0 Vicryl interrupted stitches using Gadiel-Sonia device. The remaining ports were removed under direct visualization. The skin incisions once again infiltrated with local anesthetic. The skin incisions were closed with 4-0 Monocryl subcuticular stitches and skin glue. The patient was awoken from anesthesia and extubated. Dumont catheter was removed. At the end of the case, all sponge, instrument, sharp counts were correct x 2. The patient was taken to PACU in stable condition. JOB# [id number] NK/NILAM
[2019-01-24] MEDS ORDERED: ZOSYN/NS 4.5GM/100ML 4.5 GM/100 ML VIAL IV SCH (14:00)
[2019-01-24] MEDS ORDERED: K-DUR PO ONE ×2 (15:42→20:00)
[2019-01-25 04:13] VITALS: BP 105/63
[2019-01-25] MEDS: SODIUM CHLORIDE FLUSH SYRINGE 10 ML IV SCH (09:46)
--- NOTE | 2019-01-25 12:17 | Event Note ---
Date: 01/25/19 Patient was seen and examined. Follow-up on current diagnosis of Appendicitis. No overnight events reported to me. Patient denies any chest pain, shortness breath, nausea/vomiting or severe headaches. Imaging, nursing note, chart, labs and old chart reviewed. Discussed with patient. Gen: WDWN, NAD, Awake, Alert, Orientated x 3 HEENT: NCAT, EOMI, PERRL, OP Clear Neck: supple, no adenopathy, no thyromegaly, no JVD CVS/Heart: RRR, normal S1S2, pulses present bilaterally Chest/Lungs: CTA B, Symmetrical chest expansion, good air entry bilaterally GI/Abdomen: soft, NTND, good bowel sounds, no guarding or rebound, small scant old blood on gauze in umbilicus /Bladder: no suprapubic tenderness, no CVA or paraspinal tenderness Extermity/Skin: no c/c/e, no obvious rash MSK: FROM x 4 Neuro: CN 2-12 grossly intact, no new focal deficits Psych: calm Patient is a Patient is a 43 year old woman without known past medical history who presented to the ED on account of 1 day history of upper abdominal pain. * CT abd/pelvis with contrast IMPRESSION: Thickened appendix with periappendiceal inflammation consistent with acute appendicitis. There is no evidence of perforation or abscess formation the present time. Uterine mass lesion is consistent with fibroid measuring about 5.5 cm. Discharge Diagnoses: Acute appendicitis SIRS, with organ dysfunction, poa likely due to the appendicitis Hyperglycemia with family history of diabetes Morbid obesity with BMI of 41.3 Hypokalemia: DVT prophylaxis Discharge held yesterday due to drainage. Dr. Hernandez was notified per RN. See Discharge Summary on the 01/24/19 Disposition: DC-01 TO HOME OR SELFCARE Time spent for discharge: 32 minutes
--- NOTE | 2019-01-25 15:40 | Progress Note ---
Assessment and Plan Assessment and plan: Patient is a 43 year old woman without known past medical history who presented to the ED on account of 1 day history of upper abdominal pain. * VSS, wbc 13.3, k 3.4, UA negative, bmi 41.3 * CT abd/pelvis with contrast IMPRESSION: Thickened appendix with periappendiceal inflammation consistent with acute appendicitis. There is no evidence of perforation or abscess formation the present time. Uterine mass lesion is consistent with fibroid measuring about 5.5 cm. Acute appendicitis -On IV antibiotic with Zosyn -Surgery consulted SIRS, with organ dysfunction, likely due to the appendicitis -On IV antibiotic Hyperglycemia with family history of diabetes -Hemoglobin A1c level pending Morbid obesity with BMI of 41.3 -Lifestyle modification recommended Hypokalemia: replace via IV because NPO for surgery DVT prophylaxis with SCD and GI prophylaxis with Protonix Disposition: inpatient care, For discharge planning post surgery History Interval history: Patient was seen and examined. Follow-up on current diagnosis of Acute Appendicitis. No overnight events reported to me. Patient denies any chest pain, shortness breath, nausea/vomiting or severe headaches. Imaging, nursing note, chart, labs and old chart reviewed. Discussed with patient. Hospitalist Physical - Physical exam Narrative exam: Gen: WDWN, NAD, Awake, Alert, Orientated HEENT: NCAT, EOMI, PERRL, OP Clear Neck: supple, no adenopathy, no thyromegaly, no JVD CVS/Heart: RRR, normal S1S2, pulses present bilaterally Chest/Lungs: CTA B, Symmetrical chest expansion, good air entry bilaterally GI/Abdomen: soft, tender, good bowel sounds, no guarding or rebound /Bladder: no suprapubic tenderness, no CVA or paraspinal tenderness Extermity/Skin: no c/c/e, no obvious rash MSK: FROM x 4 Neuro: CN 2-12 grossly intact, no new focal deficits Psych: calm - Constitutional Vitals: Temp Pulse Resp BP Pulse Ox 98.4 F 83 20 105/63 97 01/25/19 04:11 01/25/19 04:11 01/25/19 04:11 01/25/19 04:11 01/25/19 04:11 General appearance: Present: no acute distress Results - Labs CBC & Chem 7: 01/24/19 04:25 01/24/19 04:25 Labs: Laboratory Last Values WBC 13.3 K/mm3 (4.5-11.0) H 01/24/19 04:25 RBC 4.35 M/mm3 (3.65-5.03) 01/24/19 04:25 Hgb 10.1 gm/dl (10.1-14.3) 01/24/19 04:25 Hct 31.2 % (30.3-42.9) 01/24/19 04:25 MCV 72 fl (79-97) L 01/24/19 04:25 MCH 23 pg (28-32) L 01/24/19 04:25 MCHC 33 % (30-34) 01/24/19 04:25 RDW 15.1 % (13.2-15.2) 01/24/19 04:25 Plt Count 297 K/mm3 (140-440) 01/24/19 04:25 Lymph % (Auto) 23.5 % (13.4-35.0) 01/24/19 04:25 [place] % (Auto) 7.9 % (0.0-7.3) H 01/24/19 04:25 Eos % (Auto) 0.9 % (0.0-4.3) 01/24/19 04:25 Baso % (Auto) 0.4 % (0.0-1.8) 01/24/19 04:25 Lymph # 3.1 K/mm3 (1.2-5.4) 01/24/19 04:25 [place] # 1.0 K/mm3 (0.0-0.8) H 01/24/19 04:25 Eos # 0.1 K/mm3 (0.0-0.4) 01/24/19 04:25 Baso # 0.0 K/mm3 (0.0-0.1) 01/24/19 04:25 Seg Neutrophils % 67.3 % (40.0-70.0) 01/24/19 04:25 Seg Neutrophils # 8.9 K/mm3 (1.8-7.7) H 01/24/19 04:25 Sodium 138 mmol/L (137-145) 01/24/19 04:25 Potassium 3.4 mmol/L (3.6-5.0) L 01/24/19 04:25 Chloride 104.3 mmol/L (98-107) 01/24/19 04:25 Carbon Dioxide 24 mmol/L (22-30) 01/24/19 04:25 13 mmol/L 01/24/19 04:25 BUN 10 mg/dL (7-17) 01/24/19 04:25 0.6 mg/dL (0.7-1.2) L 01/24/19 04:25 Estimated GFR > 60 ml/min 01/24/19 04:25 17 % 01/24/19 04:25 Glucose 92 mg/dL (65-100) 01/24/19 04:25 5.8 % (4-6) 01/24/19 04:25 Calcium 7.9 mg/dL (8.4-10.2) L 01/24/19 04:25 Magnesium 1.70 mg/dL (1.7-2.3) 01/24/19 04:25 0.40 mg/dL (0.1-1.2) 01/23/19 14:55 < 0.2 mg/dL (0-0.2) 01/23/19 14:55 0.2 mg/dL 01/23/19 14:55 AST 16 units/L (5-40) 01/23/19 14:55 ALT 15 units/L (7-56) 01/23/19 14:55 68 units/L (35-129) 01/23/19 14:55 7.4 g/dL (6.3-8.2) 01/23/19 14:55 3.8 g/dL (3.9-5) L 01/23/19 14:55 1.1 % 01/23/19 14:55 21 units/L (13-60) 01/23/19 14:55 HCG, Qual Negative (Negative) 01/23/19 14:55 Yellow (Yellow) 01/23/19 14:12 Hazy (Clear) 01/23/19 14:12 6.0 (5.0-7.0) 01/23/19 14:12 Ur Specific [place] 1.025 (1.003-1.030) 01/23/19 14:12 30 mg/dl mg/dL (Negative) 01/23/19 14:12 Neg mg/dL (Negative) 01/23/19 14:12 Neg mg/dL (Negative) 01/23/19 14:12 Neg (Negative) 01/23/19 14:12 Neg (Negative) 01/23/19 14:12 Neg (Negative) 01/23/19 14:12 < 2.0 mg/dL (<2.0) 01/23/19 14:12 Ur Leukocyte Esterase Tr (Negative) 01/23/19 14:12 2.0 /HPF (0.0-6.0) 01/23/19 14:12 < 1.0 /HPF (0.0-6.0) 01/23/19 14:12 U Epithel Cells (Auto) 10.0 /HPF (0-13.0) 01/23/19 14:12 Few /HPF 01/23/19 14:12
== END 2019-01-25 12:30 | disposition home or self-care (01) | DRG 341 ==
LOC: ED 13:50 → 3B-SURG 22:38
PROVIDERS: ADMIT Internal Medicine; ATTEND Internal Medicine
PROC: 0DTJ4ZZ Resection of Appendix, Percutaneous Endoscopic Approach (ICD-10-PCS; principal; 2019-01-24)
DX: K35.80 Unspecified acute appendicitis (principal); R65.11 Systemic inflammatory response syndrome (SIRS) of non-infectious origin with acute organ dysfunction; E66.01 Morbid (severe) obesity due to excess calories; E87.6 Hypokalemia; Z68.41 Body mass index [BMI] 40.0-44.9, adult; Z83.3 Family history of diabetes mellitus
CPT/HCPCS: 36415; 74177; 80048; 80076; 81001; 83036; 83690; 83735; 84703; 85025; 88304; G0378; C9113; J1100; J1170; J1885; J2250; J2405; J2543; J2704; J3010; J3480; J7030; J7120; Q9967